=== PATIENT | male | born 1975 | race Caucasian/White ===

== ENCOUNTER 2016-07-10 19:57 | Emergency (ER) | payer MEDICAID ==
[~2016-07-10] VITALS: Ht 170.2 cm; Wt 73.0 kg
[2016-07-10 20:13] VITALS: BP_SYST 106
[2016-07-10 22:04] VITALS: BP_SYST 106
== END 2016-07-10 22:04 | disposition home or self-care (01) ==
LOC: SED 19:57
DX: F41.9 Anxiety disorder, unspecified (principal); R51 Headache
CPT/HCPCS: 99283

== ENCOUNTER 2023-08-13 14:57 | Emergency (ER) | payer MEDICAID, OTHER ==
[~2023-08-13] VITALS: Ht 167.6 cm; Wt 83.9 kg
[2023-08-13 15:05] VITALS: BP_SYST 118; PULSE 81; RESP 16; TEMP 97.9; O2SAT 99
[2023-08-13 16:40] VITALS: BP_SYST 121; PULSE 79; RESP 18; TEMP 97.6; O2SAT 98
== END 2023-08-13 16:39 | disposition home or self-care (01) ==
LOC: SED 14:57
DX: M20.011 Mallet finger of right finger(s) (principal); Z79.899 Other long term (current) drug therapy
CPT/HCPCS: 73140; 99283